=== PATIENT | female | born 1975 | race Native Hawaiian/Other Pacific Islander ===

== ENCOUNTER 2022-03-19 09:49 | Emergency (ER) | payer SELFPAY ==
[~2022-03-19] VITALS: Ht 160 cm; Wt 86.6 kg
--- NOTE | 2022-03-19 13:08 | EKG ---
[facility] [address] [facility] [place] [address] Signed Normal sinus rhythm Normal ECG No previous ECGs available Confirmed by JOHN العراقي MD ([id number]) on 03/19/2022 1:08:48 PM Electronically Signed By: JOHN العراقي MD 03/19/22 1308 PATIENT NAME: OXANA RAY Electrocardiogram DATE OF : 77 PHYSICIAN: OJHN العراقي MD REPORT #: [id number] REPORT IS CONFIDENTIAL AND NOT TO BE RELEASED WITHOUT AUTHORIZATION
== END 2022-03-19 14:59 | disposition home or self-care (01) ==
LOC: ED 09:49
DX: G45.9 Transient cerebral ischemic attack, unspecified (principal); I65.02 Occlusion and stenosis of left vertebral artery; Z20.822 Contact with and (suspected) exposure to COVID-19
CPT/HCPCS: 36415; 70450; 70496; 70498; 70551; 71045; 80053; 84703; 85025; 85610; 85730; 87502; 93005; 93010; 99284-25; A9270; C9803; Q9967; U0003